=== PATIENT | male | born 1955 | race Caucasian/White ===

== ENCOUNTER → 2016-10-28 | Day surgery (SDC) | payer BC ==
[~2016-10-28] MED LIST: ACETAMINOPHEN/HYDROcodone 325 MG/5 MG TAB ONE; BUPIVACAINE/EPINEPHRINE 0.5% PF 30 ML VIAL ONE; KETOROLAC TROMETHAMINE 30 MG/ML (IVP) VIAL IV PUSH ONE; LACTATED RINGER'S 1000 ML INJ 1,000 ML ONE; MEPERIDINE HCL 25 MG/ML VIAL ONE; MIDAZOLAM HCL 2 MG/2 ML VIAL ONE; ONDANSETRON HCL 4 MG/2 ML VIAL IV PUSH ONE; PROPOFOL 200 MG/20 ML AMP IV ONE; ceFAZolin INJ 1,000 MG VIAL ONE
--- NOTE | 2016-10-29 18:37 | MP ---
cc: JORGE HONG M.D. DATE OF SURGERY: 10/28/2016 PREOPERATIVE DIAGNOSIS: Left knee medial and lateral meniscus tear. POSTOPERATIVE DIAGNOSES Left knee medial and lateral meniscus tear. OPERATIVE PROCEDURE PERFORMED: Left knee arthroscopic partial medial and lateral meniscectomy. SURGEON: Dr. Jorge Hong ANESTHESIA: General. ESTIMATED BLOOD LOSS: Less than 10 mL. TOURNIQUET TIME: Zero minutes. COMPLICATIONS: None. JUSTIFICATION FOR THE PROCEDURE: This patient is a 51-year male with increasing pain and swelling of his left knee. He has been followed by the undersigned at the [facility]. He has failed conservative treatments. MRI confirmed the above-named findings. The patient was counseled as to the risks, benefits, and alternatives of the above-named surgical procedure and he did wish to proceed with surgery. A written consent obtained. The patient was identified and taken to the operating room and placed supine on the operating room table. General anesthesia was administered as well as 1 gram of IV Ancef. The left thigh was carefully placed in a well-padded leg burgos. The left lower extremity was prepped and draped using as isopropyl alcohol, Hibiclens solution and DuraPrep solution. After an appropriate time-out was performed, a standard medial and lateral parapatellar arthroscope portal was established. 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 The medial compartment revealed a complex tear of television news video editor horn of the medial meniscus. An arthroscopic biter followed by an arthroscopic shaver was introduced into the medial compartment to perform partial meniscectomy. The meniscal rim was probed and there was noted to be stable after meniscectomy. The medial femoral condyle did revealed diffuse grade 2 chondromalacia. The intercondylar notch revealed anterior and posterior cruciate ligaments to be intact. The lateral compartment revealed a radial unstable tear of television news video editor horn of the lateral meniscus. An arthroscopic biter followed by an arthroscopic shaver was induced into the lateral compartment to perform a partial lateral meniscectomy. Again, the meniscal rim was probed and noted to be stable after meniscectomy. There was some early grade 1 and grade 2 chondromalacic changes of the lateral femoral condyle. At the conclusion of the surgical procedure, 30 mL of Marcaine with epinephrine was injected into the knee joint. The arthroscopic portals were closed 3-0 Prolene suture. Sterile dressing was applied. The patient tolerated the procedure well with no intraoperative complications noted. MD ANA ROSA Ha/GENNY /1:56 PM /6:33 PM
== END | disposition home or self-care (01) ==
LOC: ESDC 11:34
PROVIDERS: ATTEND Orthopaedic Surgery Sports Medicine
DX: S83.232A Complex tear of medial meniscus, current injury, left knee, initial encounter (principal); S83.282A Other tear of lateral meniscus, current injury, left knee, initial encounter
CPT/HCPCS: 01400; 29880; J0690; J1885; J2175; J2250; J2405; J3010; J7120